=== PATIENT | male | born 1945 | race Caucasian/White ===

== ENCOUNTER 2016-04-27 11:56 | Inpatient (IN) | payer MEDICARE, MEDICAID ==
[~2016-04-27] VITALS: Ht 162.6 cm; Wt 64.8 kg
[~2016-04-27 11:56] MED LIST: AMLO-511 PO; DIVA250T25 PO; MULT-29 PO; QUET25TA PO; SILV45GE TP
[2016-04-27 12:38] LABS: BASOPHILS % (AUTO) 0.7 % (0.0-2.0); EOSINOPHILS % (AUTO) 0.4 % (1.0-6.0); HEMATOCRIT 35.2 % (41-53); HEMOGLOBIN 11.8 g/dL (13.5-17.5); LYMPHOCYTES # (AUTO) 2.3 K/uL (1.0-4.8); LYMPHOCYTES % (AUTO) 33.1 % (22.0-44.0); MEAN CORPUSCULAR HEMOGLOBIN 32.4 pg (26.0-34.0); MEAN CORPUSCULAR HGB CONC 33.6 G/dL (31.0-37.0); MEAN CORPUSCULAR VOLUME 97 fL (80-100); MONOCYTES # (AUTO) 0.7 K/uL (0.1-1.0); MONOCYTES % (AUTO) 10.1 % (2.0-9.0); NEUTROPHILS # (AUTO) 3.9 K/uL (1.8-7.7); NEUTROPHILS % (AUTO) 55.7 % (40.0-70.0); PLATELET COUNT (AUTO) 146 K/uL (150-450); RED BLOOD CELL COUNT(AUTO) 3.64 MIL/uL (4.50-5.90); RED CELL DISTRIBUTION WIDTH 14.4 % (11.5-14.5)
[2016-04-27 12:41] LABS: GLUCOSE,POINT OF CARE 81 MG/DL (70-110)
[2016-04-27 12:44] LABS: CALCIUM, TOTAL 9.6 mg/dL (8.8-10.5); CREATININE 1.83 mg/dL (0.60-1.30); POTASSIUM 3.8 mmol/L (3.5-5.1)
[2016-04-27 12:50] LABS: ALBUMIN 3.5 g/dL (3.4-5.0); BILIRUBIN,TOTAL 0.7 mg/dL (0.1-1.0); TOTAL PROTEIN, SERUM 8.1 g/dL (6.4-8.2)
[2016-04-27] MEDS ORDERED: LORazepam 2 MG/ML VIAL IM ONE (13:00)
[2016-04-27] MEDS ORDERED: DiphenhydrAMINE HCL 50 MG/ML VIAL IM ONE (13:00)
[2016-04-27] MEDS ORDERED: HALOPERIDOL LACTATE 5 MG/ML VIAL IM ONE (13:00)
[2016-04-27] MEDS ORDERED: LORazepam 2 MG TABLET PO PRN (13:15)
[2016-04-27] MEDS ORDERED: MAG HYDROX/AL HYDROX/SIMETH ES 30 ML SUSPENSION UDCUP PO PRN (14:45)
[2016-04-27] MEDS ORDERED: PROMETHAZINE HCL 25 MG TABLET PO PRN (14:45)
[2016-04-27] MEDS ORDERED: CYANOCOBALAMIN 1,000 MCG/ML VIAL IM ONE (14:45)
[2016-04-27] MEDS ORDERED: DIAZEPAM 10 MG TABLET PO PRN (14:45)
[2016-04-27] MEDS ORDERED: HydrOXYzine PAMOATE 50 MG CAPSULE PO PRN (14:45)
[2016-04-27] MEDS ORDERED: GuaiFENesin/D-METHORPHAN [SUGAR-FREE] 200-20MG/10 ML SYRUP UDCUP PO PRN (14:45)
[2016-04-27] MEDS ORDERED: TUBERCULIN, PURIFIED PROTEIN DERIVATIVE 5 TU/0.1 ML SYG ID ONE (14:45)
[2016-04-27] MEDS ORDERED: LOPERAMIDE HCL 2 MG CAPSULE PO PRN ×2 (14:45)
[2016-04-27] MEDS ORDERED: MAGNESIUM HYDROXIDE SUSPENSION 30 ML UDCUP PO PRN (14:45)
[2016-04-27] MEDS: THIAMINE HCL 100 MG TABLET PO SCH (17:00)
[2016-04-27] MEDS: QUEtiapine FUMARATE 25 MG TABLET PO SCH (17:00)
[2016-04-27 17:20] VITALS: BP 138/73
[2016-04-27 18:00] VITALS: BP 140/84
[2016-04-27] MEDS: DIVALPROEX SODIUM 250 MG DR TABLET PO SCH (18:00)
[2016-04-27 19:00] VITALS: BP 141/79
[2016-04-27 20:00] VITALS: BP 138/82
[2016-04-27 21:00] VITALS: BP 138/89
[2016-04-28] VITALS (7 sets, daily range): BP systolic 126–158; BP diastolic 77–96
[2016-04-28] MEDS ORDERED: DIAZEPAM 10 MG TABLET PO PRN (07:00)
[2016-04-28] MEDS ORDERED: LORazepam 2 MG TABLET PO PRN (07:00)
[2016-04-28] MEDS: QUEtiapine FUMARATE 25 MG TABLET PO SCH ×2 (08:38→16:10)
[2016-04-28] MEDS: NALTREXONE HCL 50 MG TABLET PO SCH (08:38)
[2016-04-28] MEDS: AmLODIPine BESYLATE 5 MG TABLET PO SCH (08:38)
[2016-04-28] MEDS: MULTIVITAMINS WITH MINERALS, THERAPEUTIC TABLET PO SCH (08:38)
[2016-04-28] MEDS: ACAMPROSATE CALCIUM 333 MG DR TABLET PO SCH ×3 (08:39→16:10)
[2016-04-28] MEDS: DIVALPROEX SODIUM 250 MG DR TABLET PO SCH ×2 (08:39→16:09)
[2016-04-28] MEDS: THIAMINE HCL 100 MG TABLET PO SCH ×2 (08:39→16:10)
[2016-04-28] MEDS: FOLIC ACID 1 MG TABLET PO SCH (08:39)
[2016-04-28] MEDS: DIAZEPAM 10 MG TABLET PO SCH ×4 (08:40→20:08)
[2016-04-28] MEDS: BACITRACIN 28.4 GM OINTMENT TP SCH ×2 (08:41→16:08)
[2016-04-28] MEDS: NICOTINE 14 MG/24 HOUR PATCH TD SCH (08:48)
[2016-04-28] MEDS ORDERED: LORazepam 2 MG TABLET PO SCH (09:00)
[2016-04-28] MEDS: ACETAMINOPHEN 325 MG TABLET PO PRN (16:28)
[2016-04-29] MEDS: NICOTINE 14 MG/24 HOUR PATCH TD SCH ×2 (08:32→09:00)
[2016-04-29] MEDS: AmLODIPine BESYLATE 5 MG TABLET PO SCH (08:33)
[2016-04-29] MEDS: QUEtiapine FUMARATE 25 MG TABLET PO SCH ×2 (08:35→16:13)
[2016-04-29] MEDS: THIAMINE HCL 100 MG TABLET PO SCH ×2 (08:36→16:12)
[2016-04-29] MEDS: MULTIVITAMINS WITH MINERALS, THERAPEUTIC TABLET PO SCH (08:36)
[2016-04-29] MEDS: DIAZEPAM 10 MG TABLET PO SCH ×4 (08:36→20:49)
[2016-04-29] MEDS: NALTREXONE HCL 50 MG TABLET PO SCH (08:37)
[2016-04-29] MEDS: FOLIC ACID 1 MG TABLET PO SCH (08:37)
[2016-04-29] MEDS: DIVALPROEX SODIUM 250 MG DR TABLET PO SCH ×2 (08:38→16:12)
[2016-04-29] MEDS: ACAMPROSATE CALCIUM 333 MG DR TABLET PO SCH ×3 (08:39→16:13)
[2016-04-29] MEDS: BACITRACIN 28.4 GM OINTMENT TP SCH ×2 (08:39→16:14)
[2016-04-29] MEDS: ACETAMINOPHEN 325 MG TABLET PO PRN (08:43)
[2016-04-29 20:57] VITALS: BP 137/79
[2016-04-29 22:28] VITALS: BP 135/76
[2016-04-30] MEDS: ACETAMINOPHEN 325 MG TABLET PO PRN ×2 (01:01→08:15)
[2016-04-30] MEDS ORDERED: DIAZEPAM 5 MG TABLET PO PRN (07:00)
[2016-04-30] MEDS ORDERED: LORazepam 1 MG TABLET PO PRN (07:00)
[2016-04-30 08:08] VITALS: BP 138/90
[2016-04-30] MEDS: QUEtiapine FUMARATE 25 MG TABLET PO SCH ×2 (08:10→16:14)
[2016-04-30] MEDS: MULTIVITAMINS WITH MINERALS, THERAPEUTIC TABLET PO SCH (08:10)
[2016-04-30] MEDS: AmLODIPine BESYLATE 5 MG TABLET PO SCH (08:11)
[2016-04-30] MEDS: ACAMPROSATE CALCIUM 333 MG DR TABLET PO SCH ×3 (08:12→16:14)
[2016-04-30] MEDS: DIVALPROEX SODIUM 250 MG DR TABLET PO SCH ×2 (08:12→16:14)
[2016-04-30] MEDS: DIAZEPAM 5 MG TABLET PO SCH ×4 (08:12→20:04)
[2016-04-30] MEDS: NALTREXONE HCL 50 MG TABLET PO SCH (08:13)
[2016-04-30] MEDS: THIAMINE HCL 100 MG TABLET PO SCH ×2 (08:13→16:15)
[2016-04-30] MEDS: FOLIC ACID 1 MG TABLET PO SCH (08:13)
[2016-04-30] MEDS: NICOTINE 14 MG/24 HOUR PATCH TD SCH (08:22)
[2016-04-30] MEDS: BACITRACIN 28.4 GM OINTMENT TP SCH ×2 (08:22→16:15)
[2016-04-30] MEDS ORDERED: LORazepam 1 MG TABLET PO SCH (09:00)
[2016-04-30 17:16] VITALS: BP 151/87
[2016-04-30 21:36] VITALS: BP 151/87
[2016-05-01] MEDS ORDERED: DIAZEPAM 5 MG TABLET PO PRN (07:00)
[2016-05-01] MEDS ORDERED: LORazepam 1 MG TABLET PO PRN (07:00)
[2016-05-01 08:50] VITALS: BP 159/76
[2016-05-01] MEDS: NICOTINE 14 MG/24 HOUR PATCH TD SCH (09:00)
[2016-05-01] MEDS: MULTIVITAMINS WITH MINERALS, THERAPEUTIC TABLET PO SCH (10:53)
[2016-05-01] MEDS: AmLODIPine BESYLATE 5 MG TABLET PO SCH (10:53)
[2016-05-01] MEDS: QUEtiapine FUMARATE 25 MG TABLET PO SCH ×2 (10:53→16:43)
[2016-05-01] MEDS: ACAMPROSATE CALCIUM 333 MG DR TABLET PO SCH ×3 (10:53→16:43)
[2016-05-01] MEDS: BACITRACIN 28.4 GM OINTMENT TP SCH ×2 (10:54→17:00)
[2016-05-01] MEDS: NALTREXONE HCL 50 MG TABLET PO SCH (10:54)
[2016-05-01] MEDS: THIAMINE HCL 100 MG TABLET PO SCH ×2 (10:54→16:43)
[2016-05-01] MEDS: DIVALPROEX SODIUM 250 MG DR TABLET PO SCH ×2 (10:54→16:43)
[2016-05-01] MEDS: FOLIC ACID 1 MG TABLET PO SCH (10:54)
[2016-05-01 16:27] VITALS: BP 124/78
[2016-05-01 17:00] VITALS: BP 124/78
[2016-05-02 08:05] VITALS: BP 127/80
[2016-05-02] MEDS: MULTIVITAMINS WITH MINERALS, THERAPEUTIC TABLET PO SCH (08:22)
[2016-05-02] MEDS: AmLODIPine BESYLATE 5 MG TABLET PO SCH (08:23)
[2016-05-02] MEDS: QUEtiapine FUMARATE 25 MG TABLET PO SCH ×2 (08:23→16:08)
[2016-05-02] MEDS: FOLIC ACID 1 MG TABLET PO SCH (08:25)
[2016-05-02] MEDS: NICOTINE 14 MG/24 HOUR PATCH TD SCH (08:25)
[2016-05-02] MEDS: ACAMPROSATE CALCIUM 333 MG DR TABLET PO SCH ×3 (08:25→16:08)
[2016-05-02] MEDS: THIAMINE HCL 100 MG TABLET PO SCH ×2 (08:26→16:08)
[2016-05-02] MEDS: NALTREXONE HCL 50 MG TABLET PO SCH (08:26)
[2016-05-02] MEDS: BACITRACIN 28.4 GM OINTMENT TP SCH ×2 (08:27→16:08)
[2016-05-02] MEDS: DIVALPROEX SODIUM 250 MG DR TABLET PO SCH ×2 (08:27→16:08)
[2016-05-02 16:07] VITALS: BP 126/72
[2016-05-03] MEDS: ZOLPIDEM TARTRATE 10 MG TABLET PO PRN (00:16)
[2016-05-03] MEDS: ACETAMINOPHEN 325 MG TABLET PO PRN ×2 (01:10→09:03)
[2016-05-03 08:56] LABS: CALCIUM, TOTAL 10.1 mg/dL (8.8-10.5); CREATININE 1.41 mg/dL (0.60-1.30); POTASSIUM 4.7 mmol/L (3.5-5.1)
[2016-05-03] MEDS: MULTIVITAMINS WITH MINERALS, THERAPEUTIC TABLET PO SCH (08:58)
[2016-05-03] MEDS: QUEtiapine FUMARATE 25 MG TABLET PO SCH ×2 (08:58→16:33)
[2016-05-03] MEDS: FOLIC ACID 1 MG TABLET PO SCH (08:59)
[2016-05-03] MEDS: AmLODIPine BESYLATE 5 MG TABLET PO SCH (08:59)
[2016-05-03] MEDS: NICOTINE 14 MG/24 HOUR PATCH TD SCH (09:00)
[2016-05-03] MEDS: DIVALPROEX SODIUM 250 MG DR TABLET PO SCH ×2 (09:00→16:33)
[2016-05-03] MEDS: THIAMINE HCL 100 MG TABLET PO SCH ×2 (09:00→16:33)
[2016-05-03] MEDS: ACAMPROSATE CALCIUM 333 MG DR TABLET PO SCH ×3 (09:00→16:33)
[2016-05-03] MEDS: BACITRACIN 28.4 GM OINTMENT TP SCH ×2 (09:01→17:00)
[2016-05-03] MEDS: NALTREXONE HCL 50 MG TABLET PO SCH (09:15)
[2016-05-03 10:03] VITALS: BP 126/70
[2016-05-03] MEDS: QUEtiapine FUMARATE 100 MG TABLET PO PRN (13:45)
[2016-05-03 16:36] VITALS: BP 129/78
[2016-05-04 02:00] VITALS: BP 157/83
[2016-05-04 08:00] VITALS: BP 134/75
[2016-05-04] MEDS: AmLODIPine BESYLATE 5 MG TABLET PO SCH (08:41)
[2016-05-04] MEDS: THIAMINE HCL 100 MG TABLET PO SCH ×2 (08:41→16:04)
[2016-05-04] MEDS: ACAMPROSATE CALCIUM 333 MG DR TABLET PO SCH ×3 (08:41→16:03)
[2016-05-04] MEDS: NALTREXONE HCL 50 MG TABLET PO SCH (08:42)
[2016-05-04] MEDS: MULTIVITAMINS WITH MINERALS, THERAPEUTIC TABLET PO SCH (08:42)
[2016-05-04] MEDS: DIVALPROEX SODIUM 250 MG DR TABLET PO SCH ×2 (08:42→16:04)
[2016-05-04] MEDS: FOLIC ACID 1 MG TABLET PO SCH (08:42)
[2016-05-04] MEDS: QUEtiapine FUMARATE 25 MG TABLET PO SCH ×2 (08:42→16:04)
[2016-05-04] MEDS: NICOTINE 14 MG/24 HOUR PATCH TD SCH (08:45)
[2016-05-04] MEDS: BACITRACIN 28.4 GM OINTMENT TP SCH ×2 (08:54→16:04)
[2016-05-04 16:04] VITALS: BP 133/81
[2016-05-05] MEDS: ZOLPIDEM TARTRATE 10 MG TABLET PO PRN (00:26)
[2016-05-05] MEDS: THIAMINE HCL 100 MG TABLET PO SCH ×2 (08:21→16:58)
[2016-05-05] MEDS: ACAMPROSATE CALCIUM 333 MG DR TABLET PO SCH ×3 (08:21→16:59)
[2016-05-05] MEDS: QUEtiapine FUMARATE 25 MG TABLET PO SCH ×2 (08:22→17:06)
[2016-05-05] MEDS: MULTIVITAMINS WITH MINERALS, THERAPEUTIC TABLET PO SCH (08:22)
[2016-05-05] MEDS: DIVALPROEX SODIUM 250 MG DR TABLET PO SCH ×2 (08:22→16:58)
[2016-05-05] MEDS: FOLIC ACID 1 MG TABLET PO SCH (08:22)
[2016-05-05] MEDS: NALTREXONE HCL 50 MG TABLET PO SCH (08:22)
[2016-05-05] MEDS: NICOTINE 14 MG/24 HOUR PATCH TD SCH ×2 (08:27→09:00)
[2016-05-05] MEDS: BACITRACIN 28.4 GM OINTMENT TP SCH ×2 (09:00→17:06)
[2016-05-05] MEDS: AmLODIPine BESYLATE 5 MG TABLET PO SCH (09:25)
[2016-05-05 09:34] VITALS: BP 111/61
[2016-05-05] MEDS: ACETAMINOPHEN 325 MG TABLET PO PRN (09:34)
[2016-05-05 16:23] VITALS: BP 126/73
[2016-05-05 16:24] VITALS: BP 126/73
[2016-05-05] MEDS: QUEtiapine FUMARATE 100 MG TABLET PO SCH (22:08)
[2016-05-06] MEDS: ZOLPIDEM TARTRATE 10 MG TABLET PO PRN (00:25)
[2016-05-06 00:44] VITALS: BP 137/83
[2016-05-06] MEDS: AmLODIPine BESYLATE 5 MG TABLET PO SCH (08:36)
[2016-05-06] MEDS: ACAMPROSATE CALCIUM 333 MG DR TABLET PO SCH ×3 (08:36→15:58)
[2016-05-06] MEDS: NALTREXONE HCL 50 MG TABLET PO SCH (08:36)
[2016-05-06] MEDS: FOLIC ACID 1 MG TABLET PO SCH (08:36)
[2016-05-06] MEDS: DIVALPROEX SODIUM 250 MG DR TABLET PO SCH ×2 (08:36→15:57)
[2016-05-06] MEDS: QUEtiapine FUMARATE 100 MG TABLET PO PRN (08:36)
[2016-05-06] MEDS: MULTIVITAMINS WITH MINERALS, THERAPEUTIC TABLET PO SCH (08:37)
[2016-05-06] MEDS: NICOTINE 14 MG/24 HOUR PATCH TD SCH ×2 (08:37→09:00)
[2016-05-06] MEDS: THIAMINE HCL 100 MG TABLET PO SCH ×2 (08:37→15:57)
[2016-05-06] MEDS: BACITRACIN 28.4 GM OINTMENT TP SCH ×2 (08:38→15:58)
[2016-05-06 08:53] VITALS: BP 128/89
[2016-05-06] MEDS: ACETAMINOPHEN 325 MG TABLET PO PRN ×2 (08:53→13:34)
[2016-05-06 16:04] VITALS: BP 149/97
[2016-05-06] MEDS: QUEtiapine FUMARATE 100 MG TABLET PO SCH (21:42)
[2016-05-07 00:24] VITALS: BP 119/77
[2016-05-07] MEDS: ACETAMINOPHEN 325 MG TABLET PO PRN (00:25)
[2016-05-07] MEDS: ZOLPIDEM TARTRATE 10 MG TABLET PO PRN (00:26)
[2016-05-07 08:00] VITALS: BP 132/72
[2016-05-07] MEDS: THIAMINE HCL 100 MG TABLET PO SCH (08:27)
[2016-05-07] MEDS: DIVALPROEX SODIUM 250 MG DR TABLET PO SCH ×2 (08:27→16:42)
[2016-05-07] MEDS: NALTREXONE HCL 50 MG TABLET PO SCH (08:27)
[2016-05-07] MEDS: MULTIVITAMINS WITH MINERALS, THERAPEUTIC TABLET PO SCH (08:27)
[2016-05-07] MEDS: ACAMPROSATE CALCIUM 333 MG DR TABLET PO SCH ×3 (08:27→16:42)
[2016-05-07] MEDS: FOLIC ACID 1 MG TABLET PO SCH (08:28)
[2016-05-07] MEDS: AmLODIPine BESYLATE 5 MG TABLET PO SCH (08:34)
[2016-05-07] MEDS: NICOTINE 14 MG/24 HOUR PATCH TD SCH (08:34)
[2016-05-07] MEDS: BACITRACIN 28.4 GM OINTMENT TP SCH ×3 (09:00→17:00)
[2016-05-07 16:21] VITALS: BP 136/78
[2016-05-07] MEDS: QUEtiapine FUMARATE 100 MG TABLET PO SCH (20:14)
[2016-05-07 22:30] VITALS: BP 121/73
[2016-05-07 23:14] VITALS: BP 121/73
[2016-05-07 23:45] VITALS: BP 128/82
[2016-05-08 00:15] VITALS: BP 131/79
[2016-05-08] MEDS: DIVALPROEX SODIUM 250 MG DR TABLET PO SCH ×2 (08:02→16:04)
[2016-05-08] MEDS: NICOTINE 14 MG/24 HOUR PATCH TD SCH ×2 (08:03→08:11)
[2016-05-08] MEDS: ACAMPROSATE CALCIUM 333 MG DR TABLET PO SCH ×3 (08:03→16:04)
[2016-05-08] MEDS: NALTREXONE HCL 50 MG TABLET PO SCH (08:03)
[2016-05-08] MEDS: MULTIVITAMINS WITH MINERALS, THERAPEUTIC TABLET PO SCH (08:03)
[2016-05-08] MEDS: BACITRACIN 28.4 GM OINTMENT TP SCH ×2 (08:10→16:04)
[2016-05-08] MEDS: AmLODIPine BESYLATE 5 MG TABLET PO SCH (08:10)
[2016-05-08 08:57] VITALS: BP 121/77
[2016-05-08] MEDS: QUEtiapine FUMARATE 100 MG TABLET PO PRN (12:48)
[2016-05-08 16:34] VITALS: BP 126/58
[2016-05-08] MEDS: ACETAMINOPHEN 325 MG TABLET PO PRN (16:36)
[2016-05-08] MEDS: QUEtiapine FUMARATE 100 MG TABLET PO SCH (21:48)
[2016-05-09] MEDS: ZOLPIDEM TARTRATE 10 MG TABLET PO PRN ×2 (01:08→22:30)
[2016-05-09 01:39] VITALS: BP 128/73
[2016-05-09 08:15] VITALS: BP 147/90
[2016-05-09] MEDS: DIVALPROEX SODIUM 250 MG DR TABLET PO SCH ×2 (08:36→16:05)
[2016-05-09] MEDS: ACAMPROSATE CALCIUM 333 MG DR TABLET PO SCH ×3 (08:36→16:03)
[2016-05-09] MEDS: AmLODIPine BESYLATE 5 MG TABLET PO SCH (08:36)
[2016-05-09] MEDS: NALTREXONE HCL 50 MG TABLET PO SCH (08:36)
[2016-05-09] MEDS: MULTIVITAMINS WITH MINERALS, THERAPEUTIC TABLET PO SCH (08:37)
[2016-05-09] MEDS: BACITRACIN 28.4 GM OINTMENT TP SCH ×2 (08:52→16:05)
[2016-05-09] MEDS ORDERED: NICOTINE 14 MG/24 HOUR PATCH TD PRN (09:00)
[2016-05-09 16:09] VITALS: BP 132/78
[2016-05-09] MEDS: QUEtiapine FUMARATE 100 MG TABLET PO PRN (16:24)
[2016-05-09] MEDS: QUEtiapine FUMARATE 100 MG TABLET PO SCH (20:11)
[2016-05-10 05:46] VITALS: BP 125/70
[2016-05-10 08:10] VITALS: BP 140/90
[2016-05-10] MEDS: NALTREXONE HCL 50 MG TABLET PO SCH (08:14)
[2016-05-10] MEDS: AmLODIPine BESYLATE 5 MG TABLET PO SCH (08:14)
[2016-05-10] MEDS: ACAMPROSATE CALCIUM 333 MG DR TABLET PO SCH ×3 (08:14→16:55)
[2016-05-10] MEDS: MULTIVITAMINS WITH MINERALS, THERAPEUTIC TABLET PO SCH (08:14)
[2016-05-10] MEDS: DIVALPROEX SODIUM 250 MG DR TABLET PO SCH ×2 (08:15→16:55)
[2016-05-10] MEDS: BACITRACIN 28.4 GM OINTMENT TP SCH ×2 (08:15→16:55)
[2016-05-10] MEDS: QUEtiapine FUMARATE 100 MG TABLET PO PRN (08:16)
[2016-05-10 17:41] VITALS: BP 135/78
[2016-05-10] MEDS: QUEtiapine FUMARATE 100 MG TABLET PO SCH (20:03)
[2016-05-11] MEDS: ZOLPIDEM TARTRATE 10 MG TABLET PO PRN (00:37)
[2016-05-11] MEDS: QUEtiapine FUMARATE 100 MG TABLET PO PRN (00:52)
[2016-05-11] MEDS: BACITRACIN 28.4 GM OINTMENT TP SCH ×2 (08:39→17:57)
[2016-05-11] MEDS: AmLODIPine BESYLATE 5 MG TABLET PO SCH (08:39)
[2016-05-11] MEDS: DIVALPROEX SODIUM 250 MG DR TABLET PO SCH ×2 (08:39→17:56)
[2016-05-11] MEDS: ACAMPROSATE CALCIUM 333 MG DR TABLET PO SCH ×3 (08:39→17:56)
[2016-05-11] MEDS: MULTIVITAMINS WITH MINERALS, THERAPEUTIC TABLET PO SCH (08:39)
[2016-05-11] MEDS: NALTREXONE HCL 50 MG TABLET PO SCH (09:16)
[2016-05-11 10:30] VITALS: BP 126/85
[2016-05-11 16:00] VITALS: BP 112/78
[2016-05-11 16:24] VITALS: BP 117/76
[2016-05-11 17:56] VITALS: BP 100/82
[2016-05-11] MEDS: QUEtiapine FUMARATE 100 MG TABLET PO SCH (21:00)
[2016-05-12 08:05] VITALS: BP 112/79
[2016-05-12] MEDS: AmLODIPine BESYLATE 5 MG TABLET PO SCH (08:11)
[2016-05-12] MEDS: ACAMPROSATE CALCIUM 333 MG DR TABLET PO SCH ×3 (08:11→16:28)
[2016-05-12] MEDS: NALTREXONE HCL 50 MG TABLET PO SCH (08:12)
[2016-05-12] MEDS: DIVALPROEX SODIUM 250 MG DR TABLET PO SCH ×2 (08:12→16:28)
[2016-05-12] MEDS: MULTIVITAMINS WITH MINERALS, THERAPEUTIC TABLET PO SCH (08:12)
[2016-05-12] MEDS: QUEtiapine FUMARATE 100 MG TABLET PO PRN ×2 (08:14→12:48)
[2016-05-12 11:28] LABS: CALCIUM, TOTAL 9.6 mg/dL (8.8-10.5); CREATININE 1.76 mg/dL (0.60-1.30); POTASSIUM 5.4 mmol/L (3.5-5.1)
[2016-05-12] MEDS: BACITRACIN 28.4 GM OINTMENT TP SCH ×2 (11:29→16:28)
[2016-05-12] MEDS ORDERED: SODIUM POLYSTYRENE SULFONATE 15 GM/60 ML SUSPENSION BOTTLE PO ONE (13:15)
[2016-05-12 17:27] VITALS: BP 118/72
[2016-05-12] MEDS: QUEtiapine FUMARATE 100 MG TABLET PO SCH (21:03)
[2016-05-13] MEDS: BACITRACIN 28.4 GM OINTMENT TP SCH ×2 (09:00→17:00)
[2016-05-13] MEDS: NALTREXONE HCL 50 MG TABLET PO SCH (09:35)
[2016-05-13] MEDS: MULTIVITAMINS WITH MINERALS, THERAPEUTIC TABLET PO SCH (09:35)
[2016-05-13] MEDS: QUEtiapine FUMARATE 100 MG TABLET PO PRN (09:35)
[2016-05-13] MEDS: AmLODIPine BESYLATE 5 MG TABLET PO SCH (09:35)
[2016-05-13] MEDS: ACAMPROSATE CALCIUM 333 MG DR TABLET PO SCH ×3 (09:35→17:00)
[2016-05-13] MEDS: DIVALPROEX SODIUM 250 MG DR TABLET PO SCH ×2 (09:36→17:00)
[2016-05-13] MEDS ORDERED: DIVA250T4 PO (11:06)
[2016-05-13] MEDS ORDERED: NALT50 PO (11:06)
[2016-05-13] MEDS ORDERED: ACAM333T7 PO (11:06)
[2016-05-13] MEDS ORDERED: QUET100T33 PO (11:06)
[2016-05-13 16:23] VITALS: BP 114/65
[2016-05-13] MEDS: QUEtiapine FUMARATE 100 MG TABLET PO SCH (20:21)
[2016-05-14 02:00] VITALS: BP 127/78
[2016-05-14] MEDS: ZOLPIDEM TARTRATE 10 MG TABLET PO PRN (03:36)
[2016-05-14 06:44] LABS: CALCIUM, TOTAL 9.6 mg/dL (8.8-10.5); CREATININE 1.54 mg/dL (0.60-1.30); POTASSIUM 4.5 mmol/L (3.5-5.1)
[2016-05-14] MEDS: MULTIVITAMINS WITH MINERALS, THERAPEUTIC TABLET PO SCH (09:27)
[2016-05-14] MEDS: AmLODIPine BESYLATE 5 MG TABLET PO SCH (09:27)
[2016-05-14] MEDS: NALTREXONE HCL 50 MG TABLET PO SCH (09:28)
[2016-05-14] MEDS: ACAMPROSATE CALCIUM 333 MG DR TABLET PO SCH ×3 (09:28→16:28)
[2016-05-14] MEDS: BACITRACIN 28.4 GM OINTMENT TP SCH ×3 (09:28→19:20)
[2016-05-14] MEDS: DIVALPROEX SODIUM 250 MG DR TABLET PO SCH ×2 (09:28→16:28)
[2016-05-14 15:30] VITALS: BP 133/78
[2016-05-14 16:23] VITALS: BP 133/78
[2016-05-14 16:41] VITALS: BP 133/78
[2016-05-14] MEDS: QUEtiapine FUMARATE 100 MG TABLET PO SCH (20:36)
[2016-05-14 20:48] VITALS: BP 136/75
[2016-05-15 08:00] VITALS: BP 133/71
[2016-05-15] MEDS: AmLODIPine BESYLATE 5 MG TABLET PO SCH (08:11)
[2016-05-15] MEDS: MULTIVITAMINS WITH MINERALS, THERAPEUTIC TABLET PO SCH (08:11)
[2016-05-15] MEDS: ACAMPROSATE CALCIUM 333 MG DR TABLET PO SCH ×2 (08:12→12:01)
[2016-05-15] MEDS: DIVALPROEX SODIUM 250 MG DR TABLET PO SCH (08:12)
[2016-05-15] MEDS: NALTREXONE HCL 50 MG TABLET PO SCH (08:12)
[2016-05-15] MEDS: QUEtiapine FUMARATE 100 MG TABLET PO PRN (08:18)
[2016-05-15] MEDS: BACITRACIN 28.4 GM OINTMENT TP SCH ×2 (12:00)
== END 2016-05-15 12:30 | disposition home or self-care (01) | DRG 885 ==
LOC: EMS 11:59 → EEVIPCON 11:59 → 3EX 13:31
PROVIDERS: ADMIT Psychiatry & Neurology Psychiatry; ATTEND Psychiatry & Neurology Psychiatry
PROC: GZ51ZZZ Individual Psychotherapy, Behavioral (ICD-10-PCS; principal; 2016-04-27)
DX: F33.2 Major depressive disorder, recurrent severe without psychotic features (principal); R45.851 Suicidal ideations; I13.0 Hypertensive heart and chronic kidney disease with heart failure and stage 1 through stage 4 chronic kidney disease, or unspecified chronic kidney disease; F60.9 Personality disorder, unspecified; F10.20 Alcohol dependence, uncomplicated; E87.6 Hypokalemia; E87.5 Hyperkalemia; E55.9 Vitamin D deficiency, unspecified; E03.9 Hypothyroidism, unspecified; I25.10 Atherosclerotic heart disease of native coronary artery without angina pectoris; I50.9 Heart failure, unspecified; J44.9 Chronic obstructive pulmonary disease, unspecified; D64.9 Anemia, unspecified; K21.9 Gastro-esophageal reflux disease without esophagitis; K74.60 Unspecified cirrhosis of liver; N18.9 Chronic kidney disease, unspecified; Z59.9 Problem related to housing and economic circumstances, unspecified; Z81.8 Family history of other mental and behavioral disorders; Z82.49 Family history of ischemic heart disease and other diseases of the circulatory system; Z91.19 Patient's noncompliance with other medical treatment and regimen
CPT/HCPCS: 70450; 82962; 84443; 96372; 97162; 99285; G0480; J1200; J1630; J2060; J3420